=== PATIENT | female | born 1940 | race Caucasian/White ===

== ENCOUNTER 2020-10-04 22:19 | Emergency (ER) | payer MEDICARE, OTHER ==
[2020-10-04] MEDS ORDERED: Albuterol/Ipratropium 3.0-0.5 MG/3 ML Neb Soln NEB ONE (22:57)
--- NOTE | 2020-10-04 23:06 | EDM.PDOC ---
ED HPI GENERAL MEDICAL PROBLEM - General Stated Complaint: BREATHING ISSUES/CHEST PAINS Time Seen by Provider: 10/04/20 22:40 Source of Information: Reports: Patient History Limitations: Reports: No Limitations - History of Present Illness INITIAL COMMENTS - FREE TEXT/NARRATIVE: c/o cough x 3d both day and night, nonproductive, uses O2 at home, mainly at night for several years has had BRY ochoax just moved from [facility] 3w ago to [facility], in local area has a dtr, a GD, 1 GGS, 9 GGS and 1 GGGD says she has been told she has COPD but never smoked, has Symbicort and alb HFA, no nebs PMH: includes chr fatigue syndrome has nonspecific CP, no f/c/d, seems mildly anxious Headache Pain Score (Numeric/FACES): 8 Lower Chest Pain Score (Numeric/FACES): 3 - Related Data Allergies Allergy/AdvReac Type Severity Reaction Status Date / Time adhesive tape Allergy Hives Verified 10/05/20 00:05 amoxicillin [From Augmentin] Allergy Itching Verified 10/05/20 00:05 bee venom protein (honey bee) Allergy Anaphylactic Verified 10/05/20 00:06 Shock cephalexin [From Keflex] Allergy Vaginitis Verified 10/05/20 00:05 clavulanic acid Allergy Itching Verified 10/05/20 00:05 [From Augmentin] clindamycin Allergy Cannot Verified 10/05/20 00:05 Remember hydrocodone [From Vicoprofen] Allergy Itching Verified 10/05/20 00:05 ibuprofen [From Vicoprofen] Allergy Itching Verified 10/05/20 00:05 latex Allergy Muscle Verified 10/05/20 00:05 Aches povidone-iodine Allergy Other Verified 10/05/20 00:05 [From Betadine] prochlorperazine Allergy Itching Verified 10/05/20 00:05 [From Compazine] rice Allergy Anaphylactic Verified 10/05/20 00:05 Shock soap [From Betadine] Allergy Other Verified 10/05/20 00:05 sulfamethoxazole Allergy Itching Verified 10/05/20 00:05 [From Bactrim] trimethoprim [From Bactrim] Allergy Itching Verified 10/05/20 00:05 Home Meds: Home Meds Acetaminophen [Tylenol Arthritis] 1,300 mg PO ASDIRECTED PRN 10/05/20 [History] Albuterol Sulfate 2.5 mg IH Q4H PRN #40 ampule 10/05/20 [Rx] Albuterol [Ventolin HFA] 2 puff .XX Q4H PRN 10/05/20 [History] Aspirin 81 mg PO BEDTIME 10/05/20 [History] Budesonide/Formoterol Fumarate [Symbicort 160-4.5 Mcg Inhaler] 2 puff BID 10/05/20 [History] DULoxetine [Cymbalta] 90 mg PO DAILY 10/05/20 [History] Doxycycline [Vibra-Tabs] 100 mg PO BID #14 tab 10/05/20 [Rx] Fluticasone Propionate [Flonase] 2 spray .XX BEDTIME 10/05/20 [History] Furosemide [Lasix] 20 mg PO DAILY 10/05/20 [History] Gabapentin [Neurontin] 400 mg PO TID 10/05/20 [History] Lansoprazole [Prevacid] 30 mg PO DAILY 10/05/20 [History] Levothyroxine 75 mcg PO ACBREAKFAST 10/05/20 [History] Magnesium 400 mg PO DAILY 10/05/20 [History] Multivitamin 1 each PO DAILY 10/05/20 [History] Propylene Glycol/PEG 400/Pf [Systane 0.3-0.4% Eye Drop] 3 drop EYEBOTH DAILY 10/05/20 [History] Vit A/Vit C/Vit E/Zinc/Copper [Preservision] 1 tab DAILY 10/05/20 [History] Vitamin B Complex 1 each PO DAILY 10/05/20 [History] carvediloL [Coreg] 37.5 mg PO BID 10/05/20 [History] guaiFENesin [Mucinex] 600 mg PO BID 10/05/20 [History] predniSONE 20 mg PO DAILY #5 tab 10/05/20 [Rx] rOPINIRole [Requip] 2 - 4 mg PO BEDTIME 10/05/20 [History] ED ROS GENERAL - Review of Systems Review Of Systems: See Below Constitutional: Reports: No Symptoms HEENT: Reports: No Symptoms Respiratory: Reports: Shortness of Breath, Cough Cardiovascular: Reports: No Symptoms Endocrine: Reports: No Symptoms GI/Abdominal: Reports: No Symptoms : Reports: No Symptoms Musculoskeletal: Reports: No Symptoms Skin: Reports: No Symptoms Neurological: Reports: No Symptoms Psychiatric: Reports: No Symptoms Hematologic/Lymphatic: Reports: No Symptoms Immunologic: Reports: No Symptoms ED EXAM, GENERAL - Physical Exam Exam: See Below Exam Limited By: No Limitations General Appearance: Alert, WD/WN, No Apparent Distress, Other (sitting on bed crosslegged in tripod position but not dyspnea or cough noted) Ears: Hearing Grossly Normal Nose: Normal Inspection, Nasal Swelling Throat/Mouth: Normal Inspection, Normal Lips, Normal Teeth, Normal Oropharynx, Normal Voice, No Airway Compromise Head: Atraumatic, Normocephalic Neck: Normal Inspection, Supple, Non-Tender, Full Range of Motion. No: Lymphadenopathy (R), Lymphadenopathy (L) Respiratory/Chest: No Respiratory Distress, Lungs Clear, Normal Breath Sounds, Chest Non-Tender. No: Respiratory Distress, Decreased Breath Sounds, Rales, Rhonchi, Wheezing Cardiovascular: Regular Rate, Rhythm, No Edema, No Murmur GI/Abdominal: Soft, Non-Tender Back Exam: Normal Inspection, Full Range of Motion Extremities: Normal Inspection, Non-Tender, No Pedal Edema Neurological: Alert, Oriented, CN II-XII Intact, Normal Cognition, No Motor/Sensory Deficits Psychiatric: Anxious Skin Exam: Warm, Dry, Intact, Normal Color, No Rash Lymphatic: No Adenopathy #1 Interpretation EKG Date: 10/04/20 Time: 23:12 Rhythm: NSR Rate (Beats/Min): 83 [place]: Normal QRS: LBBB Comparison: NA - No Prior EKG EKG Interpretation Comments: SR 83, no acute findings, obtained for baseline, no comparison Course - Vital Signs Last Recorded V/S: Last Vital Signs Temp 36.7 C 10/04/20 22:20 Pulse 88 10/04/20 22:20 Resp 22 H 10/04/20 22:20 BP 138/86 10/04/20 22:20 Pulse Ox 99 10/04/20 22:20 - Orders/Labs/Meds Orders: Active Orders 24 hr Category Date Time Status EKG Documentation Completion [RC] ASDIRECTED Care 10/04/20 22:58 Ordered RT Aerosol Therapy [RC] ASDIRECTED Care 10/04/20 22:59 Ordered Chest 2V [CR] Stat Exams 10/04/20 22:57 Ordered EKG 12 Lead [EK] Routine Ther 10/04/20 22:57 Ordered Labs: Laboratory Tests 10/04/20 10/04/20 10/04/20 Range/Units 23:15 23:15 23:15 WBC 7.4 (3.0-10.3) x10-3/uL RBC 4.49 (3.60-5.20) x10(6)uL Hgb 13.3 (11.4-15.5) g/dL Hct 40.1 (34.2-48.2) % MCV 89.2 (76.7-100.5) fL MCH 29.6 (23.9-33.9) pg MCHC 33.1 (31.9-34.8) g/dL RDW 15.1 (12.3-16.5) % Plt Count 199 (151-488) x10(3)uL MPV 7.5 (7.1-12.4) fL Neut % (Auto) 74.1 (30.8-76.2) % Lymph % (Auto) 16.6 L (18.4-52.1) % [place] % (Auto) 6.2 (4.4-15.7) % Eos % (Auto) 2.3 (0.6-8.1) % Baso % (Auto) 0.8 (0.2-1.5) % Neut # (Auto) 5.5 (1.5-6.3) x10-3/uL Lymph # (Auto) 1.2 (1.0-4.4) x10-3/uL [place] # (Auto) 0.5 (0.3-1.0) x10-3/uL Eos # (Auto) 0.2 (0.0-0.8) x10-3/uL Baso # (Auto) 0.1 (0.0-0.1) x10-3/uL POC VBG pH (7.32-7.43) pH Units POC VBG pCO2 (41-51) mmHg POC VBG HCO3 (21-29) mmol/L VBG Base Excess (-2-3) mmol/L O2 Delivery Device Sodium 141 (135-145) mmol/L Potassium 3.7 (3.5-5.3) mmol/L Chloride 101 (100-110) mmol/L Carbon Dioxide 34 H (21-32) mmol/L BUN 22 H (7-18) mg/dL Creatinine 0.9 (0.55-1.02) mg/dL Est Cr Clr Drug Dosing TNP Estimated GFR (MDRD) > 60 (>60) BUN/Creatinine Ratio 24.4 H (9-20) Glucose 124 H (80-116) mg/dL Calcium 9.1 (8.6-10.2) mg/dL Total Bilirubin 0.2 (0.1-1.3) mg/dL AST 11 (5-25) IU/L ALT 23 (12-36) U/L Alkaline Phosphatase 80 (56-112) IU/L Troponin I 36.5 (4.0-60.3) pg/mL C-Reactive Protein 1.8 H (0.5-0.9) mg/dL Total Protein 6.8 (6.0-8.0) g/dL Albumin 3.2 (3.2-4.6) g/dL Globulin 3.6 g/dL Albumin/Globulin Ratio 0.9 / Range/Units 23:15 WBC (3.0-10.3) x10-3/uL RBC (3.60-5.20) x10(6)uL Hgb (11.4-15.5) g/dL Hct (34.2-48.2) % MCV (76.7-100.5) fL MCH (23.9-33.9) pg MCHC (31.9-34.8) g/dL RDW (12.3-16.5) % Plt Count (151-488) x10(3)uL MPV (7.1-12.4) fL Neut % (Auto) (30.8-76.2) % Lymph % (Auto) (18.4-52.1) % [place] % (Auto) (4.4-15.7) % Eos % (Auto) (0.6-8.1) % Baso % (Auto) (0.2-1.5) % Neut # (Auto) (1.5-6.3) x10-3/uL Lymph # (Auto) (1.0-4.4) x10-3/uL [place] # (Auto) (0.3-1.0) x10-3/uL Eos # (Auto) (0.0-0.8) x10-3/uL Baso # (Auto) (0.0-0.1) x10-3/uL POC VBG pH 7.39 (7.32-7.43) pH Units POC VBG pCO2 52 H (41-51) mmHg POC VBG HCO3 32 H (21-29) mmol/L VBG Base Excess 5 H (-2-3) mmol/L O2 Delivery Device Room air Sodium (135-145) mmol/L Potassium (3.5-5.3) mmol/L Chloride (100-110) mmol/L Carbon Dioxide (21-32) mmol/L BUN (7-18) mg/dL Creatinine (0.55-1.02) mg/dL Est Cr Clr Drug Dosing Estimated GFR (MDRD) (>60) BUN/Creatinine Ratio (9-20) Glucose (80-116) mg/dL Calcium (8.6-10.2) mg/dL Total Bilirubin (0.1-1.3) mg/dL AST (5-25) IU/L ALT (12-36) U/L Alkaline Phosphatase (56-112) IU/L Troponin I (4.0-60.3) pg/mL C-Reactive Protein (0.5-0.9) mg/dL Total Protein (6.0-8.0) g/dL Albumin (3.2-4.6) g/dL Globulin g/dL Albumin/Globulin Ratio Meds: Medications Discontinued Medications Generic Name Dose Route Start Last Admin Trade Name Nishq PRN Reason Stop Dose Admin Albuterol/Ipratropium 3 ml 10/04/20 22:57 10/04/20 23:25 Albuterol/Ipratropium 3.0-0.5 Mg/3 Ml Neb Soln NEB 10/04/20 22:58 3 ml ONETIME ONE Administration Doxycycline Hyclate 100 mg 10/05/20 00:08 Doxycycline 100 Mg Tab PO 10/05/20 00:09 ONETIME ONE Methylprednisolone Sodium Succinate 125 mg 10/05/20 00:08 Methylprednisolone Sodium Succinate 125 Mg/2 Ml Sdv IM 10/05/20 00:09 ONETIME ONE - Re-Assessments/Exams Free Text/Narrative Re-Assessment/Exam: 10/04/20 23:04 central obesity, may have pickwickian syndrome, will check baseline labs/EKG/CxR as pt is new to area no active pul or CV illness identified will give Duoneb as per pt request altho PO 100% on RA and no wheezing say Dr Yoo 2w ago for the 1st time, Dr Milton was ill this weekend and f/u apt rescheduled for 3d from now 10/05/20 00:17 CxR 2v on prelim ED read without flat diaphragms, inc'd markings in RMl that are likely chronic, however no comparison inc'd CRP may be acute (c/w bronchiectasis) or chronic (c/w chronic fatigue syndrome), suspect bronchiectasis but not COPD, pt agreeable to tx with pred and doxy, also asked for more alb nebs as she is out, has Symbicort and alb HFAs Departure - Departure Time of Disposition: 00:10 Disposition: Home, Self-Care 01 Condition: Good Clinical Impression: Bronchiectasis, Elevated C-reactive protein (CRP), New onset cough, Prerenal azotemia, LBBB (left bundle branch block), First degree AV block, Carbon dioxide retention - Discharge Information *PRESCRIPTION DRUG MONITORING PROGRAM REVIEWED*: Not Applicable *COPY OF PRESCRIPTION DRUG MONITORING REPORT IN PATIENT JOSE LUIS: Not Applicable Prescriptions: Albuterol Sulfate 2.5 mg IH Q4H PRN #40 ampule PRN Reason: Wheezing predniSONE 20 mg PO DAILY #5 tab Doxycycline [Vibra-Tabs] 100 mg PO BID #14 tab Instructions: Bronchiectasis Additional Instructions: Continue current medications and inhalers. To open airways, take prednisone 20 mg 1 tab daily for 5 days. For infection, take doxycycline 100 mg 1 tab 2 times a day for [address] Yoo in 2 days as scheduled. Sepsis Event Note (ED) - Focused Exam Vital Signs: Vital Signs Temp Pulse Resp BP Pulse Ox 10/04/20 22:20 36.7 C 88 22 H 138/86 99 - My Orders Last 24 Hours: My Active Orders 10/04/20 22:57 Chest 2V [CR] Stat EKG 12 Lead [EK] Routine 10/04/20 22:58 EKG Documentation Completion [RC] ASDIRECTED 10/04/20 22:59 RT Aerosol Therapy [RC] ASDIRECTED - Assessment/Plan Last 24 Hours: My Active Orders 10/04/20 22:57 Chest 2V [CR] Stat EKG 12 Lead [EK] Routine 10/04/20 22:58 EKG Documentation Completion [RC] ASDIRECTED 10/04/20 22:59 RT Aerosol Therapy [RC] ASDIRECTED
[2020-10-04 23:29] LABS: BASE EXCESS VENOUS,POC 5 mmol/L (-2-3); HCO3 VENOUS,POC 32 mmol/L (21-29); PCO2 VENOUS,POC 52 mmHg (41-51); PH VENOUS,POC 7.39 pH Units (7.32-7.43)
[2020-10-05] MEDS ORDERED: Doxycycline 100 MG Tab PO ONE (00:08)
[2020-10-05] MEDS ORDERED: methylPREDNISolone Sodium Succinate 125 MG/2 ML SDV IM ONE (00:08)
[2020-10-05] MEDS ORDERED: Albuterol 0.083% 2.5 MG/3 ML Neb Soln NEB ONE (00:37)
--- NOTE | 2020-10-06 09:56 | CR ---
INDICATION: Short of breath. CHEST TWO VIEWS: PA and lateral views of the chest were obtained 10/06/2020 - no comparisons. Prominent AP diameter, flattened diaphragm leaves, and mild hyperaeration suggests COPD - correlate clinically. Somewhat heavy markings are noted at the lung bases making it difficult to exclude minimal patchy bronchopneumonia. However, no consolidating pneumonia or effusion was identified. The heart appears to be at the upper limits of normal in size or minimally enlarged. The aorta is tortuous with calcification in the ascending portion. Degenerative changes of a mild degree are noted at the mid thoracic spine. Bilateral shoulder arthroplasties are noted. Overlying EKG leads are noted. IMPRESSION: 1. No definite acute process but difficult to exclude patchy bronchopneumonia at the lung bases. 2. ASHD. 3. COPD. 4. Mild DJD spine. MTDD
== END 2020-10-05 00:43 | disposition home or self-care (01) ==
LOC: FB.ED 22:19
DX: J47.9 Bronchiectasis, uncomplicated (principal); I44.0 Atrioventricular block, first degree; I44.7 Left bundle-branch block, unspecified; R79.82 Elevated C-reactive protein (CRP); E87.2 Acidosis; Z91.018 Allergy to other foods; Z88.5 Allergy status to narcotic agent; Z88.0 Allergy status to penicillin; Z88.1 Allergy status to other antibiotic agents; Z91.040 Latex allergy status; Z91.048 Other nonmedicinal substance allergy status; Z88.8 Allergy status to other drugs, medicaments and biological substances; Z79.82 Long term (current) use of aspirin; Z79.899 Other long term (current) drug therapy; Z91.030 Bee allergy status
CPT/HCPCS: 36415; 71046; 80053; 84484; 85025; 86140; 93005; 94640; 96372; 99285; A9270; J2930; J7620-GY

== ENCOUNTER 2020-10-20 11:09 | Emergency (ER) | payer MEDICARE, OTHER ==
--- NOTE | 2020-10-20 11:33 | EDM.PDOC ---
ED HPI GENERAL MEDICAL PROBLEM - General Chief Complaint: Gastrointestinal Problem Stated Complaint: BLOOD WITH BM Time Seen by Provider: 10/20/20 11:29 Source of Information: Reports: Patient History Limitations: Reports: No Limitations - History of Present Illness INITIAL COMMENTS - FREE TEXT/NARRATIVE: Patient had BRBPR with a BM @1 hour ago. Denies rectal or abdominal pain. She does not take any anticoagulation medication. Denies prior h/o GI bleed. She had a normal Colonoscopy in 2008. Duration: Hour(s): (1) - Related Data Allergies Allergy/AdvReac Type Severity Reaction Status Date / Time adhesive tape Allergy Hives Verified 10/20/20 11:55 amoxicillin [From Augmentin] Allergy Itching Verified 10/20/20 11:55 bee venom protein (honey bee) Allergy Anaphylactic Verified 10/20/20 11:55 Shock cephalexin [From Keflex] Allergy Vaginitis Verified 10/20/20 11:55 clavulanic acid Allergy Itching Verified 10/20/20 11:55 [From Augmentin] clindamycin Allergy Cannot Verified 10/20/20 11:55 Remember codeine Allergy Other Verified 10/20/20 11:55 hydrocodone [From Vicoprofen] Allergy Itching Verified 10/20/20 11:55 ibuprofen [From Vicoprofen] Allergy Itching Verified 10/20/20 11:55 latex Allergy Muscle Verified 10/20/20 11:55 Aches povidone-iodine Allergy Other Verified 10/20/20 11:55 [From Betadine] prochlorperazine Allergy Itching Verified 10/20/20 11:55 [From Compazine] rice Allergy Anaphylactic Verified 10/20/20 11:55 Shock soap [From Betadine] Allergy Other Verified 10/20/20 11:55 sulfamethoxazole Allergy Itching Verified 10/20/20 11:55 [From Bactrim] trimethoprim [From Bactrim] Allergy Itching Verified 10/20/20 11:55 Home Meds: Home Meds Acetaminophen [Tylenol Arthritis] 1,300 mg PO ASDIRECTED PRN 10/05/20 [History] Albuterol Sulfate 2.5 mg IH Q4H PRN #40 ampule 10/05/20 [Rx] Albuterol [Ventolin HFA] 2 puff .XX Q4H PRN 10/05/20 [History] Aspirin 81 mg PO BEDTIME 10/05/20 [History] Budesonide/Formoterol Fumarate [Symbicort 160-4.5 Mcg Inhaler] 2 puff BID 03/27 [History] DULoxetine [Cymbalta] 90 mg PO DAILY 10/05/20 [History] Fluticasone Propionate [Flonase] 2 spray .XX BEDTIME 10/05/20 [History] Furosemide [Lasix] 20 mg PO DAILY 10/05/20 [History] Gabapentin [Neurontin] 400 mg PO TID 10/05/20 [History] Lansoprazole [Prevacid] 30 mg PO DAILY 10/05/20 [History] Levothyroxine 75 mcg PO ACBREAKFAST 10/05/20 [History] Multivitamin 1 each PO DAILY 10/05/20 [History] Propylene Glycol/PEG 400/Pf [Systane 0.3-0.4% Eye Drop] 3 drop EYEBOTH DAILY 10/05/20 [History] Vit A/Vit C/Vit E/Zinc/Copper [Preservision] 1 tab DAILY 10/05/20 [History] Vitamin B Complex 1 each PO DAILY 10/05/20 [History] carvediloL [Coreg] 37.5 mg PO BID 10/05/20 [History] guaiFENesin [Mucinex] 600 mg PO BID 10/05/20 [History] rOPINIRole [Requip] 2 - 4 mg PO BEDTIME 10/05/20 [History] Acetaminophen/HYDROcodone [HYDROcodone-Acetaminophen 5-325 MG *] 1 tab PO ASDIRECTED PRN 10/20/20 [History] Ciprofloxacin HCl [Cipro] 500 mg PO ASDIRECTED PRN 10/20/20 [History] Clotrimazole/Betameth Dip/Zinc [Dermacinrx Therazole Norberto] 1 applic .XX ASDIRECTED PRN 10/20/20 [History] Codeine/guaiFENesin [Robitussin AC] 10 ml PO ASDIRECTED PRN 10/20/20 [History] Cyclobenzaprine [Flexeril] 10 mg PO BEDTIME PRN 10/20/20 [History] Fluconazole [Diflucan] 200 mg PO ASDIRECTED PRN 10/20/20 [History] LORazepam [Ativan] 1 mg PO ASDIRECTED PRN 10/20/20 [History] Ondansetron [Zofran ODT] 4 mg PO ASDIRECTED PRN 10/20/20 [History] ZOLMitriptan [Zomig] 2.5 mg PO ASDIRECTED PRN 10/20/20 [History] traMADol [Ultram] 50 mg PO Q6HR PRN 10/20/20 [History] Past Medical History Cardiovascular History: Reports: Cardiomyopathy, Hypertension, Other (See Below) Other Cardiovascular History: left bbb, myocarditis Respiratory History: Reports: Asthma, Bronchitis, Recurrent, Pneumonia, Recurrent, Other (See Below) Other Respiratory History: chronic laryngitis, allergic rhinitis, hayfever Musculoskeletal History: Reports: Back Pain, Chronic, Fracture, Fibromyalgia, Osteoarthritis, Other (See Below) Other Musculoskeletal History: restless legs syndrome, torn right knee meniscus, sciatica, cervical stenosis/myelopathy Neurological History: Reports: Neuropathy, Peripheral Dermatologic History: Reports: Psoriasis - Infectious Disease History Infectious Disease History: Reports: Influenza, Shingles, Other (See Below) 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 - Past Surgical History HEENT Surgical History: Reports: Adenoidectomy, Cataract Surgery, Retinal, Tonsillectomy, Other (See Below) Other HEENT Surgeries/Procedures: repair of right orbital floor fracture, bilateral upper eyelid repair Cardiovascular Surgical History: Reports: Other (See Below) Other Cardiovascular Surgeries/Procedures: angiogram GI Surgical History: Reports: Appendectomy, Cholecystectomy Female Surgical History: Reports: Cystoscopy, Hysterectomy, Oophorectomy, Other (See Below) Other Female Surgeries/Procedures: vaginal, bladder, urethra and rectal repair, cystogram Neurological Surgical History: Reports: Discectomy Musculoskeletal Surgical History: Reports: ORIF, Shoulder Replacement, Other (See Below) Other Musculoskeletal Surgeries/Procedures:: removal of large fatty tumor left ankle, right meniscus knee repair Social & Family History - Family History Family Medical History: No Pertinent Family History - Tobacco Use Tobacco Use Within Last Twelve Months: No - Caffeine Use Caffeine Use: Reports: Coffee, Soda, Tea - Alcohol Use Alcohol Use History: Yes Alcohol Use Frequency: Rarely ED ROS GENERAL - Review of Systems Review Of Systems: Comprehensive ROS is negative, except as noted in HPI. ED EXAM, GI/ABD - Physical Exam Exam: See Below Exam Limited By: No Limitations General Appearance: Alert, WD/WN, No Apparent Distress Throat/Mouth: No Airway Compromise Head: Atraumatic, Normocephalic Neck: Full Range of Motion Respiratory/Chest: No Respiratory Distress Cardiovascular: Regular Rate, Rhythm, No Murmur GI/Abdominal Exam: Normal Bowel Sounds, Soft, Non-Tender, No Distention Rectal (Female) Exam: Heme + Stool, Hemorrhoids (External, thrombosed), Other (Light brown stool, no shahzad blood noted) Extremities: Normal Range of Motion Neurological: Alert, Normal Cognition Psychiatric: Normal Affect, Normal Mood Skin Exam: Warm, Dry, Intact Course - Vital Signs Last Recorded V/S: Last Vital Signs Temp 36.3 C 10/20/20 11:10 Pulse 97 10/20/20 11:10 Resp 16 10/20/20 11:10 BP 121/86 10/20/20 11:10 Pulse Ox 96 10/20/20 11:10 - Orders/Labs/Meds Labs: Laboratory Tests 10/20/20 10/20/20 Range/Units 11:50 11:50 WBC 7.9 (3.0-10.3) x10-3/uL RBC 4.53 (3.60-5.20) x10(6)uL Hgb 12.9 (11.4-15.5) g/dL Hct 40.4 (34.2-48.2) % MCV 89.2 (76.7-100.5) fL MCH 28.5 (23.9-33.9) pg MCHC 31.9 (31.9-34.8) g/dL RDW 15.7 (12.3-16.5) % Plt Count 221 (151-488) x10(3)uL MPV 7.5 (7.1-12.4) fL Neut % (Auto) 69.9 (30.8-76.2) % Lymph % (Auto) 20.6 (18.4-52.1) % [place] % (Auto) 6.8 (4.4-15.7) % Eos % (Auto) 1.7 (0.6-8.1) % Baso % (Auto) 1.0 (0.2-1.5) % Neut # (Auto) 5.5 (1.5-6.3) x10-3/uL Lymph # (Auto) 1.6 (1.0-4.4) x10-3/uL [place] # (Auto) 0.5 (0.3-1.0) x10-3/uL Eos # (Auto) 0.1 (0.0-0.8) x10-3/uL Baso # (Auto) 0.1 (0.0-0.1) x10-3/uL Sodium 145 (135-145) mmol/L Potassium 4.3 (3.5-5.3) mmol/L Chloride 107 D (100-110) mmol/L Carbon Dioxide 33 H (21-32) mmol/L BUN 21 H (7-18) mg/dL Creatinine 0.9 (0.55-1.02) mg/dL Est Cr Clr Drug Dosing 44.49 mL/min Estimated GFR (MDRD) > 60 (>60) BUN/Creatinine Ratio 23.3 H (9-20) Glucose 133 H (80-116) mg/dL Calcium 9.0 (8.6-10.2) mg/dL Total Bilirubin 0.3 (0.1-1.3) mg/dL AST 11 (5-25) IU/L ALT 25 (12-36) U/L Alkaline Phosphatase 65 (56-112) IU/L Total Protein 6.5 (6.0-8.0) g/dL Albumin 3.1 L (3.2-4.6) g/dL Globulin 3.4 g/dL Albumin/Globulin Ratio 0.9 - Re-Assessments/Exams Free Text/Narrative Re-Assessment/Exam: 10/20/20 12:19 No rectal bleeding in the ED. Hemorrhoidal bleeding most likely etiology. Departure - Departure Time of Disposition: 12:22 Disposition: Home, Self-Care 01 Condition: Good Clinical Impression: Rectal bleeding - Discharge Information *PRESCRIPTION DRUG MONITORING PROGRAM REVIEWED*: No *COPY OF PRESCRIPTION DRUG MONITORING REPORT IN PATIENT JOSE LUIS: Not Applicable Instructions: Rectal Bleeding Referrals: Jasen Yoo MD [Primary Care Provider] - 2 Days Forms: ED Department Discharge Additional Instructions: Follow up with your Primary Physician in 1-2 days for referral to General Surgery or Gastroenterology. You will most likely need a Colonoscopy. Hold the Aspirin for 3 days. Continue stool softeners. Return to the ER if symptoms persist or worsen. Sepsis Event Note (ED) - Focused Exam Vital Signs: Vital Signs Temp Pulse Resp BP Pulse Ox 10/20/20 11:10 36.3 C 97 16 121/86 96
== END 2020-10-20 12:40 | disposition home or self-care (01) ==
LOC: FB.ED 11:09
DX: K62.5 Hemorrhage of anus and rectum (principal); I11.9 Hypertensive heart disease without heart failure; Z79.82 Long term (current) use of aspirin; Z79.899 Other long term (current) drug therapy; Z91.018 Allergy to other foods; Z88.2 Allergy status to sulfonamides; Z91.048 Other nonmedicinal substance allergy status; Z91.040 Latex allergy status; Z91.030 Bee allergy status; Z88.5 Allergy status to narcotic agent; Z88.1 Allergy status to other antibiotic agents; Z88.0 Allergy status to penicillin
CPT/HCPCS: 36415; 80053; 82272; 85025; 99283

== ENCOUNTER 2021-01-20 16:26 | Emergency (ER) | payer MEDICARE, OTHER ==
[2021-01-20] MEDS ORDERED: Acetaminophen 500 MG Tab PO STA (17:14)
[2021-01-20] MEDS ORDERED: traMADol 50 MG Tab PO STA (17:14)
--- NOTE | 2021-01-20 18:15 | EDM.PDOC ---
ED HPI GENERAL MEDICAL PROBLEM - General Chief Complaint: General Stated Complaint: HEADACHE Time Seen by Provider: 01/20/21 16:35 Source of Information: Reports: Patient, Family History Limitations: Reports: No Limitations - History of Present Illness INITIAL COMMENTS - FREE TEXT/NARRATIVE: Patient presented to the ED because of left sided facial pain,headache and bilateral knee pain. she tripped and fell, landed on her left face. there was no LOC after the fall. Headache Pain Score (Numeric/FACES): 3 Bilateral Knee Pain Score (Numeric/FACES): 2 - Related Data Allergies Allergy/AdvReac Type Severity Reaction Status Date / Time adhesive tape Allergy Hives Verified 01/20/21 18:03 amoxicillin [From Augmentin] Allergy Itching Verified 01/20/21 18:03 bee venom protein (honey bee) Allergy Anaphylactic Verified 01/20/21 18:03 Shock cephalexin [From Keflex] Allergy Vaginitis Verified 01/20/21 18:03 clavulanic acid Allergy Itching Verified 01/20/21 18:03 [From Augmentin] clindamycin Allergy Cannot Verified 01/20/21 18:03 Remember codeine Allergy Other Verified 01/20/21 18:03 hydrocodone [From Vicoprofen] Allergy Itching Verified 01/20/21 18:03 ibuprofen [From Vicoprofen] Allergy Itching Verified 01/20/21 18:03 latex Allergy Muscle Verified 01/20/21 18:03 Aches povidone-iodine Allergy Other Verified 01/20/21 18:03 [From Betadine] prochlorperazine Allergy Itching Verified 01/20/21 18:03 [From Compazine] rice Allergy Anaphylactic Verified 01/20/21 18:03 Shock soap [From Betadine] Allergy Other Verified 01/20/21 18:03 sulfamethoxazole Allergy Itching Verified 01/20/21 18:03 [From Bactrim] trimethoprim [From Bactrim] Allergy Itching Verified 01/20/21 18:03 Home Meds: Home Meds Acetaminophen [Tylenol Arthritis] 1,300 mg PO ASDIRECTED PRN 10/05/20 [History] Albuterol Sulfate 2.5 mg IH Q4H PRN #40 ampule 10/05/20 [Rx] Albuterol [Ventolin HFA] 2 puff .XX Q4H PRN 10/05/20 [History] Aspirin 81 mg PO BEDTIME 10/05/20 [History] Budesonide/Formoterol Fumarate [Symbicort 160-4.5 Mcg Inhaler] 2 puff BID 10/05/20 [History] DULoxetine [Cymbalta] 90 mg PO DAILY 10/05/20 [History] Fluticasone Propionate [Flonase] 2 spray .XX BEDTIME 10/05/20 [History] Furosemide [Lasix] 20 mg PO DAILY 10/05/20 [History] Gabapentin [Neurontin] 400 mg PO TID 10/05/20 [History] Lansoprazole [Prevacid] 30 mg PO DAILY 10/05/20 [History] Levothyroxine 75 mcg PO ACBREAKFAST 10/05/20 [History] Multivitamin 1 each PO DAILY 10/05/20 [History] Propylene Glycol/PEG 400/Pf [Systane 0.3-0.4% Eye Drop] 3 drop EYEBOTH DAILY 10/05/20 [History] Vit A/Vit C/Vit E/Zinc/Copper [Preservision] 1 tab DAILY 10/05/20 [History] Vitamin B Complex 1 each PO DAILY 10/05/20 [History] carvediloL [Coreg] 37.5 mg PO BID 10/05/20 [History] guaiFENesin [Mucinex] 600 mg PO BID 10/05/20 [History] rOPINIRole [Requip] 2 - 4 mg PO BEDTIME 10/05/20 [History] Acetaminophen/HYDROcodone [HYDROcodone-Acetaminophen 5-325 MG *] 1 tab PO ASDIRECTED PRN 10/20/20 [History] Ciprofloxacin HCl [Cipro] 500 mg PO ASDIRECTED PRN 10/20/20 [History] Clotrimazole/Betameth Dip/Zinc [Dermacinrx Therazole Norberto] 1 applic .XX ASDIRECTED PRN 10/20/20 [History] Codeine/guaiFENesin [Robitussin AC] 10 ml PO ASDIRECTED PRN 10/20/20 [History] Cyclobenzaprine [Flexeril] 10 mg PO BEDTIME PRN 10/20/20 [History] Fluconazole [Diflucan] 200 mg PO ASDIRECTED PRN 10/20/20 [History] LORazepam [Ativan] 1 mg PO ASDIRECTED PRN 10/20/20 [History] Ondansetron [Zofran ODT] 4 mg PO ASDIRECTED PRN 10/20/20 [History] ZOLMitriptan [Zomig] 2.5 mg PO ASDIRECTED PRN 10/20/20 [History] traMADol [Ultram] 50 mg PO Q6HR PRN 10/20/20 [History] Past Medical History Cardiovascular History: Reports: Cardiomyopathy, Hypertension, Other (See Below) Other Cardiovascular History: left bbb, myocarditis Respiratory History: Reports: Asthma, Bronchitis, Recurrent, Pneumonia, Recurrent, Other (See Below) Other Respiratory History: chronic laryngitis, allergic rhinitis, hayfever Musculoskeletal History: Reports: Back Pain, Chronic, Fracture, Fibromyalgia, Osteoarthritis, Other (See Below) Other Musculoskeletal History: restless legs syndrome, torn right knee meniscus, sciatica, cervical stenosis/myelopathy Neurological History: Reports: Neuropathy, Peripheral Dermatologic History: Reports: Psoriasis - Infectious Disease History Infectious Disease History: Reports: Influenza, Shingles, Other (See Below) 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 - Past Surgical History HEENT Surgical History: Reports: Adenoidectomy, Cataract Surgery, Retinal, Tonsillectomy, Other (See Below) Other HEENT Surgeries/Procedures: repair of right orbital floor fracture, bilateral upper eyelid repair Cardiovascular Surgical History: Reports: Other (See Below) Other Cardiovascular Surgeries/Procedures: angiogram GI Surgical History: Reports: Appendectomy, Cholecystectomy Female Surgical History: Reports: Cystoscopy, Hysterectomy, Oophorectomy, Other (See Below) Other Female Surgeries/Procedures: vaginal, bladder, urethra and rectal repair, cystogram Neurological Surgical History: Reports: Discectomy Musculoskeletal Surgical History: Reports: ORIF, Shoulder Replacement, Other (See Below) Other Musculoskeletal Surgeries/Procedures:: removal of large fatty tumor left ankle, right meniscus knee repair Social & Family History - Family History Family Medical History: No Pertinent Family History - Tobacco Use Tobacco Use Status *Q: Never Tobacco User Second Hand Smoke Exposure: No - Caffeine Use Caffeine Use: Reports: Coffee, Soda, Tea - Recreational Drug Use Recreational Drug Use: No ED ROS GENERAL - Review of Systems Review Of Systems: See Below Constitutional: Reports: No Symptoms HEENT: Reports: No Symptoms Respiratory: Reports: No Symptoms Cardiovascular: Reports: No Symptoms Endocrine: Reports: No Symptoms GI/Abdominal: Reports: No Symptoms : Reports: No Symptoms Musculoskeletal: Reports: Other (bilateral knee pain) Skin: Reports: No Symptoms Neurological: Reports: No Symptoms Psychiatric: Reports: No Symptoms ED EXAM, GENERAL - Physical Exam Exam: See Below Exam Limited By: No Limitations General Appearance: Alert, No Apparent Distress Eye Exam: Bilateral Eye: PERRL Ears: Normal External Exam, Normal Canal Nose: Normal Inspection, Normal Mucosa, No Blood Throat/Mouth: Normal Inspection, Normal Lips, Normal Teeth, Normal Gums, Normal Oropharynx, Normal Voice Head: Atraumatic, Normocephalic Neck: Normal Inspection, Supple, Non-Tender, Full Range of Motion Respiratory/Chest: No Respiratory Distress, Lungs Clear, Normal Breath Sounds, No Accessory Muscle Use, Chest Non-Tender Cardiovascular: Normal Peripheral Pulses, Regular Rate, Rhythm, No Edema, No JVD, No Murmur GI/Abdominal: Normal Bowel Sounds, Soft, Non-Tender, No Organomegaly Back Exam: Normal Inspection, Full Range of Motion Extremities: Normal Inspection, Normal Range of Motion, Other (tenderness on both knees) Neurological: Alert, Oriented, CN II-XII Intact, Normal Cognition Psychiatric: Normal Affect Skin Exam: Warm Course - Vital Signs Text/Narrative:: Head and Facial CT-negative Bilateral knee xray-negative Tramadol 100 mg PO x1 Tylenol 1000 mg PO x1 Last Recorded V/S: Last Vital Signs Temp 36.2 C 01/20/21 18:40 Pulse 93 01/20/21 18:40 Resp 16 01/20/21 18:40 BP 127/73 01/20/21 18:40 Pulse Ox 95 01/20/21 18:40 - Orders/Labs/Meds Orders: Active Orders 24 hr Category Date Time Status Head wo Cont [CT] Stat Exams 01/20/21 16:40 Taken Max Facial Sinus wo Cont [CT] Stat Exams 01/20/21 16:40 Taken Meds: Medications Discontinued Medications Generic Name Dose Route Start Last Admin Trade Name Freq PRN Reason Stop Dose Admin Acetaminophen 1,000 mg 01/20/21 17:14 01/20/21 17:42 Acetaminophen 500 Mg Tab PO 01/20/21 17:15 1,000 mg NOW STA Administration Tramadol HCl 100 mg 01/20/21 17:14 01/20/21 17:43 Tramadol 50 Mg Tab PO 01/20/21 17:15 100 mg NOW STA Administration Departure - Departure Time of Disposition: 18:30 Disposition: Home, Self-Care 01 Condition: Good Clinical Impression: Head injury, Facial contusion, Contusion, knee, Osteoarthritis - Discharge Information Instructions: Facial or Scalp Contusion, [id number], Head Injury, Adult, [id number] Referrals: Jasen oYo MD [Primary Care Provider] - Forms: ED Department Discharge Additional Instructions: Please read discharge instructions on head injury and contusion Take tramadol 100 mg with tylenol 1000 mg every 8 hours as needed for pain Follow up as needed Sepsis Event Note (ED) - Evaluation Sepsis Screening Result: No Definite Risk - My Orders Last 24 Hours: My Active Orders 01/20/21 16:40 Head wo Cont [CT] Stat Max Facial Sinus wo Cont [CT] Stat - Assessment/Plan Last 24 Hours: My Active Orders 01/20/21 16:40 Head wo Cont [CT] Stat Max Facial Sinus wo Cont [CT] Stat
--- NOTE | 2021-01-21 11:31 | CR ---
BILATERAL KNEES INDICATION: Bilateral knee pain. FINDINGS: Three views of the right and left knee were obtained 01/20/21 - no comparison. Hypertrophic changes are noted at the patellofemoral joints, somewhat more severe on the right with narrowing of the medial patellofemoral joint space mildly on the right. No joint effusion was noted. Bone density appeared normal. Hypertrophic changes are noted medially of the left femur and tibia and at the left intercondylar spines. Left femorotibial joint spaces appear to be fairly well maintained. On the right, there is mild narrowing of the medial femorotibial joint space with hypertrophic changes medially and laterally off the femur and medially off the tibia, as well as at the intercondylar spines and to a mild extent the notch laterally. An acute fracture or dislocation was not identified. IMPRESSION: Bilateral osteoarthritis appearing more severe on the right. MTDD
== END 2021-01-20 18:40 | disposition home or self-care (01) ==
LOC: FB.ED 16:26
DX: S00.83XA Contusion of other part of head, initial encounter (principal); M17.0 Bilateral primary osteoarthritis of knee; I11.9 Hypertensive heart disease without heart failure; Z88.0 Allergy status to penicillin; Z91.048 Other nonmedicinal substance allergy status; Z88.1 Allergy status to other antibiotic agents; Z91.030 Bee allergy status; Z91.040 Latex allergy status; Z91.018 Allergy to other foods; Z88.8 Allergy status to other drugs, medicaments and biological substances; Z79.82 Long term (current) use of aspirin; Z79.899 Other long term (current) drug therapy; W01.0XXA Fall on same level from slipping, tripping and stumbling without subsequent striking against object, initial encounter
CPT/HCPCS: 70450; 70486; 73562; 99284; A9270

== ENCOUNTER 2021-05-21 06:30 | Day surgery (SDC) | payer MEDICARE, OTHER ==
[~2021-05-21 06:30] MED LIST: Lactated Ringers 1,000 ML IV SCH; Sodium Chloride 0.9% 10 ML Syringe FLUSH PRN
[2021-05-21] MEDS ORDERED: Propofol 200 MG/20 ML SDV IV ONE (06:31)
== END 2021-05-21 09:20 | disposition home or self-care (01) ==
LOC: FB.SDS 06:30
PROVIDERS: ATTEND Surgery
DX: K92.1 Melena (principal); K64.1 Second degree hemorrhoids; E66.9 Obesity, unspecified; Z68.31 Body mass index [BMI] 31.0-31.9, adult; I10 Essential (primary) hypertension; Z88.0 Allergy status to penicillin; Z88.2 Allergy status to sulfonamides; Z88.8 Allergy status to other drugs, medicaments and biological substances; Z88.1 Allergy status to other antibiotic agents; Z88.5 Allergy status to narcotic agent; Z88.6 Allergy status to analgesic agent; Z91.048 Other nonmedicinal substance allergy status; Z91.038 Other insect allergy status; Z98.890 Other specified postprocedural states; Z79.82 Long term (current) use of aspirin; Z79.899 Other long term (current) drug therapy
CPT/HCPCS: 00811; 45378; J2704; J7120

== ENCOUNTER 2022-03-29 00:27 | Emergency (ER) | payer MEDICARE ==
[2022-03-29] MEDS: Ondansetron 4 MG Tab.DIS PO ONE (01:12)
[2022-03-29] MEDS: traMADol 50 MG Tab PO ONE (01:12)
[2022-03-29] MEDS: Ondansetron 4 MG Tab.DIS ONE (01:12)
== END 2022-03-29 03:12 | disposition home or self-care (01) ==
LOC: FB.ED 00:27
DX: S43.402A Unspecified sprain of left shoulder joint, initial encounter (principal); S43.401A Unspecified sprain of right shoulder joint, initial encounter; S16.1XXA Strain of muscle, fascia and tendon at neck level, initial encounter; S80.01XA Contusion of right knee, initial encounter; S80.02XA Contusion of left knee, initial encounter; S09.90XA Unspecified injury of head, initial encounter; I11.9 Hypertensive heart disease without heart failure; E78.00 Pure hypercholesterolemia, unspecified; J45.909 Unspecified asthma, uncomplicated; E66.9 Obesity, unspecified; Z68.28 Body mass index [BMI] 28.0-28.9, adult; Z91.048 Other nonmedicinal substance allergy status; Z91.030 Bee allergy status; Z88.0 Allergy status to penicillin; Z88.5 Allergy status to narcotic agent; Z91.040 Latex allergy status; Z88.2 Allergy status to sulfonamides; Z79.82 Long term (current) use of aspirin; Z79.899 Other long term (current) drug therapy; W10.8XXA Fall (on) (from) other stairs and steps, initial encounter
CPT/HCPCS: 70450; 70486; 71111; 72125; 73030-50; 73562-50; 99283; 99284; A9270-GY; Q0162